=== PATIENT | male | born 1940 | race Caucasian/White ===

== ENCOUNTER 2016-12-05 06:48 | Outpatient (CLI) | payer MEDICARE, OTHER ==
[~2016-12-05] VITALS: Ht 175.3 cm; Wt 109.4 kg
--- NOTE | ~2016-12-05 | CATH ---
Cardiac Diagnostic Report Demographics Patient Name NAREN BILL Gender Male L Date of 1940 Age 76 year(s) Patient Number [id number] Date of Study 12/05/2016 Visit Number [id number] Room Number [id number] [place] ID [id number] Ht 175.26 cm Wt 109.4 kg Referring Meg HILL Primary Physician Physician Performing Efstratiou Secondary Physician Physician Collette Shields MD Diagnostic Efstratiou Assisting Physician Physician Collette Shields MD Interventional Physician Relay Dispatcher Physician Findings and Conclusions Diagnostic Findings and Conclusion All three [place] vessels are 100% occluded. SVGs are patent with one tight anastomotic lesion. Possible culprit for ischemia is SVG to Diag 1 and septal 1. Diagnostic Recommendations Planned PCI to Diag and possible septal 1. Start clopidogrel. Procedure Description The patient was brought to the diagnostic cardiac catheterization-EP laboratory in the fasting, non-sedated state. Informed consent was obtained in the written and verbal form after the risks and benefits were explained. The patient had no further questions and agreed to proceed. The planned puncture-incision site(s) were shaved and prepped with ChloraPrep and draped in the usual sterile manner. Conscious sedation, supplemental oxygen, and pain control medications were delivered by a registered nurse under physician guidance. Surface ECG rhythm, blood pressure measurement, and pulse oximetry were monitored throughout the procedure. Arterial access. The access site was infiltrated with lidocaine. The vessel was entered with the Seldinger technique. A sheath was advanced into the vessel and used for catheter placement. Selective left coronary angiography. A catheter was advanced into the left coronary vessel ostium under Fluoroscopic guidance. Contrast was injected by hand. Images were obtained in multiple projections. Selective right coronary angiography. A catheter was advanced into the right coronary vessel ostium under fluoroscopic guidance. Contrast was injected by hand. Images were obtained in multiple projections. Selective SWANN graft angiography. A catheter was advanced into the left internal mammary graft ostium under fluoroscopic guidance. Contrast was injected by hand. Images were obtained in multiple projections. Selective SVG angiography. A catheter was advanced into the graft proximal anastomosis under fluoroscopic guidance. Contrast was injected by hand. Images were obtained in multiple projections. Arterial artery hemostasis. Hemostasis was achieved. The patient was transferred to a regular nursing floor via cart accompanied by a nurse. The patient left the laboratory in stable condition. Diagnostic Cath Status: Elective Procedure Procedure Type Diagnostic procedure:Angiography:, Coronary Angios w/Grafts Indications: Abnormal Stress Test. The procedure was explained in detail to the patient. Risks, complications and alternative treatments were reviewed. Written consent was obtained. Medications Reviewed with Patient prior to Procedure. Angiographic Findings Dominance: Right Cardiac Arteries and Lesion Findings LMCA: Lesion on LMCA: Distal subsection.80% stenosis . LAD: Lesion on Prox LAD: Proximal subsection.100% stenosis .Chronic total occlusion. Comments:After first septal. Lesion on 1st Septal: Ostial.95% stenosis .Culprit lesion. Comments:Planning possible PCI to this vessel. Lesion on 1st Diag: Proximal subsection.100% stenosis . LCx: Lesion on Prox CX: Proximal subsection.90% stenosis . Lesion on 1st Ob Juliet: Proximal subsection.100% stenosis . Lesion on 2nd Ob Juliet: Mid subsection.20% stenosis .The lesion was diffuse. RCA: Lesion on Prox RCA: Proximal subsection.100% stenosis . Lesion on 1st RPL: Proximal subsection.30% stenosis . Graft Lesions Lesion on Aorta Left to 1st Ob Juliet: Proximal body.40% stenosis . Lesion on Aorta Left to 1st Diag: Proximal anastomosis.90% stenosis . Cardiac Grafts - There is a Vein graft that originates at the Aorta Right and attaches to the R PDA (Patent. PDA small and diffusely diseased. PLB 30% stenosis (fills retrogradely).). - There is a Vein graft that originates at the Aorta Left and attaches to the 2nd Diag (Patent.). - There is a Vein graft that originates at the Aorta Left and attaches to the 1st Diag (90% anastomotic lesion. [place] vessel small.). - There is a graft that originates at the Aorta Left and attaches to the 1st Ob Juliet (40% proximal stenosis. [place] vessel small, patent. ). - There is a Vein graft that originates at the Aorta Left and attaches to the 2nd Ob Juliet (Patent. [place] vessel 20% diffuse disease.). - There is a SWANN graft that originates at the SWANN and attaches to the Dist LAD (Small, patent, excellent flow. [place] vessel small.). Coronary Tree Procedure Data Procedure Date Date: 12/05/2016Start: 09:04 AMEnd: 10:02 AM Entry Locations - Retrograde Percutaneous access was performed through the Right Femoral artery (Primary location). A 6 Fr sheath was inserted. Hemostasis was successfully obtained using Angio-Seal STS PLUS ([place]). Closure Comments: Dr. Ara acosta. Procedure Medications Order and Administration + + +-------+-------+ !Time !Medication !Dosage !Route ! + + +-------+-------+ !12/05/2016 09:56 AM !Plavix (ACC_8) !600 mg !P.O. ! + + +-------+-------+ Devices Used - A6 Fr. BS JL 3.5 Diag. Catheterwas used for:Left coronary angiography. - A6 Fr. BS JR 4 Diag. Catheterwas used for:Right coronary angiography. - A6 Fr. BS IMT Diag. Catheterwas used for:SWANN. - A6 Fr. BS LCB Diag. Catheterwas used for:SVG. - A6 Fr. BS JR 5 Diag. Catheterwas used for:SVG. - A6 Fr. JJ 3DRC Diag. Catheterwas used for:SVG. Contrast Material - Isovue 167905 ml Fluoroscopy Time: Diagnostic: 17:00 minutes. Total: 17:00 minutes. Fluoroscopy Dose: Diagnostic: 2816 mGy. Total: 2816 mGy. Estimated Blood Loss: 25 ml. Medical History Performed Procedures and Imaging Results - Stress testing with SPECT MPIwas performed on 11/22/2016. Results were: Positive. Risk/Extent of ischemia was: Low risk. Allergies - No known allergies. 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 Admission Data Admission Date: 12/05/2016 Admission Time: 06:48 AM Admit Source: Other Insurance Payors: Medicare. Admission Medications + +------+------+ + + + + !Medication !Dosage!Times !Last !Last !Administered !Comments ! ! ! !Per !Delivery !Delivery ! ! ! ! ! !Day !Date !Time ! ! ! + +------+------+ + + + + !Aspirin ! ! ! ! !Yes ! ! !(any) ! ! ! ! ! ! ! + +------+------+ + + + + !Statin (any)! ! ! ! !Yes ! ! + +------+------+ + + + + !LAYLA ! ! ! ! !Yes ! ! !Inhibitor ! ! ! ! ! ! ! !(any) ! ! ! ! ! ! ! + +------+------+ + + + + !Beta Vern! ! ! ! !Yes ! ! !(any) ! ! ! ! ! ! ! + +------+------+ + + + + Clinical Evaluation Leading to Procedure - There were no CAD presentation symptoms. - There were no anginal symptoms. Anti-anginal medications were prescribed during the past two weeks. The medication is: Beta Blockers. Snapshots Hemodynamics Condition: Rest O2 Consumption: Estimated: 268.67Heart Rate: 84 bpm Pressures (mmHg) + + + !Site !Pressure ! + + + !AO !143/66 (95) ! + + + !L [place] !140/62 (92) ! + + + Shunts Oxygen Values O2 Capacity 209.44 O2 Consumption 268.67 Discharge Data Discharge Date: 12/05/2016 Hospital Status: Outpatient Signatures dtt: Nehemias Bullock dtd: 12/05/16 0904 Physician Self Edit
[~2016-12-05 06:48] MED LIST: ALLEGRA180 MG PO; AMOXICILLIN500 MG PO; ASPIRIN EC81 MG PO; CALCIUM 600 +1 EAC6 PO; DEPO-TESTO200 MG/1 M IM; GABAPENTIN300 MG PO; GLUCOSAMINE-CH1 EA26 PO; LEVOTHROID (SY88 MCG PO; LIPITOR80 MG PO; LISINOPRIL-HCT1 EAC1 PO; MIRALAX17 GM PO; MUCUS RELIEF C400 MG PO; NEURONTIN300 MG PO; PRILOSEC20 MG PO; TOPROL XL 5050 MG PO; TYLENOL EXTRA500 MG PO; XALATAN2.5 ML OPHTH; XARELTO20 MG PO
[2016-12-05 07:24] LABS: BASOPHIL # 0.1 K/uL (0.0-0.2); BASOPHIL % 0.9 %; EOSINOPHIL # 0.3 K/uL (0.0-0.5); EOSINOPHIL % 3.5 %; HEMATOCRIT 47.7 % (37.0-53.0); HEMOGLOBIN 15.4 g/dL (11.0-16.0); IMMATURE GRANULOCYTE % 0.3 %; LYMPHOCYTE # 1.9 K/uL (0.8-4.0); LYMPHOCYTE % 22.3 %; MCH 28.2 pg (27.0-34.0); MCHC 32.3 gm/dL (32.0-36.5); MCV 87.4 fl (83.0-98.0); MONOCYTE # 0.8 K/uL (0.0-1.0); MONOCYTE % 9.6 %; MPV 9.5 fl (9.4-12.4); NEUTROPHIL # (ANC) 5.5 K/uL (1.4-9.0); NEUTROPHIL % 63.4 %; NRBC % 0 /100WBC (0-0.00); PLATELET COUNT 194 K/uL (150-450); RDW-CV 13.7 % (11.9-14.6); WBC 8.7 K/uL (4.0-11.0)
[2016-12-05 07:28] LABS: RBC 5.46 M/uL (3.50-5.50)
[2016-12-05 07:31] LABS: PROTIME 10.3 SECONDS (9.6-11.1); PTT 30 SECONDS (25-32)
[2016-12-05 07:37] LABS: ALBUMIN 3.4 gm/dL (3.5-5.0); ANION GAP 13.4 (10.0-19.0); CALCIUM 8.9 mg/dL (8.5-10.5); CREATININE 1.2 mg/dL (0.6-1.3); POTASSIUM 4.4 mMol/L (3.7-5.1); TOTAL BILIRUBIN 0.3 mg/dL (0.0-1.5); TOTAL PROTEIN 7.7 g/dL (6.0-8.4)
[2016-12-05] MEDS ORDERED: PLAVIX75 MG PO (10:45)
[2016-12-05] MEDS ORDERED: ZETIA10 MG PO (10:45)
== END 2016-12-05 13:10 | disposition disaster alternative care site (69) ==
LOC: GCAT 06:48 → GPCU 06:48 → GPOC 07:00 → GCAT 13:10
PROVIDERS: Internal Medicine Cardiovascular Disease
DX: I25.10 Atherosclerotic heart disease of native coronary artery without angina pectoris (principal); I25.810 Atherosclerosis of coronary artery bypass graft(s) without angina pectoris; I25.82 Chronic total occlusion of coronary artery; E78.5 Hyperlipidemia, unspecified; I48.0 Paroxysmal atrial fibrillation; I47.2 Ventricular tachycardia; E66.9 Obesity, unspecified; G47.33 Obstructive sleep apnea (adult) (pediatric); E03.9 Hypothyroidism, unspecified; I12.9 Hypertensive chronic kidney disease with stage 1 through stage 4 chronic kidney disease, or unspecified chronic kidney disease; G62.9 Polyneuropathy, unspecified; N18.3 Chronic kidney disease, stage 3 (moderate); I25.2 Old myocardial infarction; Z79.82 Long term (current) use of aspirin; Z79.01 Long term (current) use of anticoagulants; Z79.899 Other long term (current) drug therapy; Z87.891 Personal history of nicotine dependence; Z95.0 Presence of cardiac pacemaker; Z82.49 Family history of ischemic heart disease and other diseases of the circulatory system
CPT/HCPCS: C1760; C1894; J1644; J2001; J3010; J7030

== ENCOUNTER 2016-12-16 06:56 | Outpatient (CLI) | payer MEDICARE, OTHER ==
[~2016-12-16] VITALS: Ht 172.7 cm; Wt 107.3 kg
--- NOTE | ~2016-12-16 | CATH ---
Cardiac Interventional Report Demographics Patient Name NAREN BILL Gender Male L Date of 1940 Age 76 year(s) Patient Number [id number] Date of Study 12/16/2016 Visit Number [id number] Room Number G6340 [employer] ID [id number] Ht 172.7 cm Wt 107.3 kg Referring Meg HILL Primary Physician Physician Performing Efstratiou Secondary Physician Physician Collette Shields MD Diagnostic Efstratiou Assisting Physician Physician Collette Shields MD Interventional Efstratiou Physician [place] Physician Collette Shields MD Findings and Conclusions Interventional Findings and Conclusion 95% septal reduced to 80% after PTCA- Due to calcium and tortuosity unable to stent Interventional Recommendations ASA and Plavix for 3 months Procedure Description The patient was brought to the diagnostic cardiac catheterization-EP laboratory in the fasting, non-sedated state. Informed consent was obtained in the written and verbal form after the risks and benefits were explained. The patient had no further questions and agreed to proceed. The planned puncture-incision site(s) were shaved and prepped with Chloroprep and draped in the usual sterile manner. Conscious sedation and pain control medications were delivered by a registered nurse under physician guidance. Surface ECG rhythm, blood pressure measurement, and pulse oximetry were monitored throughout the procedure. Angioplasty: A guiding catheter was used to intubate the vessel. A 0.14 wire was used to cross the lesion. A balloon was positioned across the lesion and inflated. Post placement angiograms were performed. Interventional Cath Status: Elective Procedure Procedure Type PCI procedure:PTCA:, Septal Indications: Chest pain. The procedure was explained in detail to the patient. Risks, complications and alternative treatments were reviewed. Written consent was obtained. Medications Reviewed with Patient prior to Procedure. Angiographic Findings Dominance: Right Cardiac Arteries and Lesion Findings LAD: Lesion on 1st Septal: Ostial.95% stenosis 12 mm length reduced to 80%. Pre procedure ELISSA III flow was noted. Post Procedure ELISSA III flow was present. The guidewire cross was successful.A poor run off was present.The lesion was diagnosed as a moderate risk lesion.Culprit lesion. Devices used - Whisper Wire .014 x 190. Number of passes: 2. - Emerge Balloon 1.5 x 12. 2 inflation(s) to a max pressure of: 14 bud. - Emerge Balloon 2.0 x 12. 2 inflation(s) to a max pressure of: 14 bud. - NC Emerge Balloon 2.25 x 12. 2 inflation(s) - Whisper Extra Support Wire .014 x 190. Number of passes: 1. - Emerge Balloon 2.0 x 12. 2 inflation(s) - Emerge Push Balloon 1.2 x 8. 5 inflation(s) to a max pressure of: 14 bud. - Emerge Balloon 1.5 x 8. 1 inflation(s) to a max pressure of: 14 bud. - Emerge Push Balloon 1.2 x 12. 1 inflation(s) to a max pressure of: 16 bud. Cardiac Grafts - There is a Vein graft that originates at the Aorta Right and attaches to the R PDA. - There is a Vein graft that originates at the Aorta Left and attaches to the 2nd Diag. - There is a Vein graft that originates at the Aorta Left and attaches to the 1st Diag. - There is a graft that originates at the Aorta Left and attaches to the 1st Ob Juliet. - There is a Vein graft that originates at the Aorta Left and attaches to the 2nd Ob Juliet. - There is a SWANN graft that originates at the SWANN and attaches to the Dist LAD. Coronary Tree Procedure Data Procedure Date Date: 12/16/2016Start: 09:18 AMEnd: 10:20 AM Entry Locations - Retrograde Percutaneous access was performed through the Right Radial artery (Primary location). A 6 Fr sheath was inserted. Hemostasis was successfully obtained using Mechanical Compression. Closure Comments: 14 cc air in r band by jaime. Procedure Medications Order and Administration + + +--------+ + !Time !Medication !Dosage !Route ! + + +--------+ + !12/16/2016 !Fentanyl !50 mcg !I.V. ! !09:18 AM ! ! ! ! + + +--------+ 12/16/2016 !PAE Radial Cocktail: Heparin 5000 units,! !I.A. ! !09:20 AM !Nitroglycerin 200mcg, Verapamil 3 mg ! ! ! ! !(ACC_3) ! ! ! + + +--------+ 12/16/2016 !Heparin (ACC_3) !1999 !I.V. bolus! !09:22 AM ! !units ! ! + + +--------+ 12/16/2016 !Heparin (ACC_3) !3000 !I.V. bolus! !09:30 AM ! !units ! ! + + +--------+ 12/16/2016 !Heparin (ACC_3) !1999 !I.V. bolus! !10:02 AM ! !units ! ! + + +--------+ + Devices Used - A6 Fr. XBLAD 3.5 Guide Catheterwas used for:Septal Intervention. - A6 Fr. EBU 3.75 Guide Catheterwas used for:Septal Intervention. Contrast Material - Isovue 11504 ml Fluoroscopy Time: Diagnostic: 16:42 minutes. Total: 16:42 minutes. Fluoroscopy Dose: Diagnostic: 1507 mGy. Total: 1507 mGy. Estimated Blood Loss: 25 ml. Additional [facility] PCI Information PCI Indication:Staged PCI. Medical History Allergies - No known allergies. Risk Factors The patient risk factors include: prior CABG on 08/04/2013;obesity, physical activity, hypercholesterolemia, hypertension, family history of premature CAD, last creatinine: 1.3 mg/dl, creatinine clearance: 72.22 ml/min, dyslipidemia and former tobacco use. Admission Data Admission Date: 12/16/2016 Admission Time: 06:56 AM Admit Source: Other Insurance Payors: Medicare. Admission Medications + +------+------+ + + + + !Medication !Dosage!Times !Last !Last !Administered !Comments ! ! ! !Per !Delivery !Delivery ! ! ! ! ! !Day !Date !Time ! ! ! + +------+------+ + + + + !LAYLA ! ! ! ! ! ! ! !Inhibitor ! ! ! ! ! ! ! !(any) ! ! ! ! ! ! ! + +------+------+ + + + + !Aspirin ! ! ! ! ! ! ! !(any) ! ! ! ! ! ! ! + +------+------+ + + + + !Beta Vern! ! ! ! ! ! ! !(any) ! ! ! ! ! ! ! + +------+------+ + + + + !Statin (any)! ! ! ! ! ! ! + +------+------+ + + + + !Clopidogrel ! ! ! ! ! ! ! + +------+------+ + + + + Snapshots Hemodynamics Condition: Rest O2 Consumption: Estimated: 242.84Heart Rate: 60 bpm Pressures (mmHg) +-----+ + !Site !Pressure ! +-----+ + !AO !96/52 (70) ! +-----+ + !AO !104/52 (72) ! +-----+ + Shunts Oxygen Values O2 Capacity 204 O2 Consumption 242.84 Signatures dtt: Nehemias Bullock dtd: 12/16/16 0918 Physician Self Edit
[~2016-12-16 06:56] MED LIST changes: +PLAVIX75 MG PO; +ZETIA10 MG PO
[2016-12-16 07:41] LABS: BASOPHIL # 0.1 K/uL (0.0-0.2); EOSINOPHIL # 0.3 K/uL (0.0-0.5); EOSINOPHIL % 3.1 %; HEMATOCRIT 45.1 % (37.0-53.0); IMMATURE GRANULOCYTE % 0.4 %; LYMPHOCYTE # 1.7 K/uL (0.8-4.0); LYMPHOCYTE % 17.2 %; MCH 28.7 pg (27.0-34.0); MCHC 33.3 gm/dL (32.0-36.5); MCV 86.4 fl (83.0-98.0); MONOCYTE % 10.2 %; MPV 9.7 fl (9.4-12.4); NEUTROPHIL # (ANC) 6.7 K/uL (1.4-9.0); NEUTROPHIL % 68.1 %; NRBC % 0 /100WBC (0-0.00); PLATELET COUNT 210 K/uL (150-450); RBC 5.22 M/uL (3.50-5.50); RDW-CV 13.8 % (11.9-14.6); WBC 9.8 K/uL (4.0-11.0)
[2016-12-16 07:54] LABS: PROTIME 10.4 SECONDS (9.6-11.1); PTT 29 SECONDS (25-32)
[2016-12-16 08:00] LABS: ALBUMIN 3.5 gm/dL (3.5-5.0); ANION GAP 13.1 (10.0-19.0); CALCIUM 8.7 mg/dL (8.5-10.5); CREATININE 1.3 mg/dL (0.6-1.3); POTASSIUM 4.1 mMol/L (3.7-5.1); TOTAL PROTEIN 7.6 g/dL (6.0-8.4)
[2016-12-16 08:18] LABS: TOTAL BILIRUBIN 0.5 mg/dL (0.0-1.5)
[2016-12-16 15:38] LABS: CPK 93 IU/L (35-332)
--- NOTE | 2016-12-16 19:15 | NUR ---
Significant Event: Alert and oriented X 3. Room air. SBP 110's, 120's and 140's. HR 60's. Patient has pacemaker. Cath through right radial with radial compression band. Air released at 2 ml/15 min. Band removed at 1515. +2 radial pulse and good sensation in right hand. No bleeding. Gauze and coban applied. Up with standby assist to restroom. Pleasant and cooperative with cares. at bedside. Follow up:
[2016-12-17 03:59] LABS: ALBUMIN 3.4 gm/dL (3.5-5.0); ALK PHOS 97 IU/L (33-138); ALT 34 IU/L (12-78); BLOOD UREA NITROGEN 27 mg/dL (6-24); CALCIUM 9.1 mg/dL (8.5-10.5); CHLORIDE 106 mMol/L (96-110); CO2 27 mMol/L (22-32); CREATININE 1.1 mg/dL (0.6-1.3); ESTIMATED GFR (MDRD EQUATION) > 60; SODIUM 142 mMol/L (135-145); TOTAL BILIRUBIN 0.5 mg/dL (0.0-1.5); TOTAL PROTEIN 7.8 g/dL (6.0-8.4)
[2016-12-17 04:01] LABS: ANION GAP 13.4 (10.0-19.0); AST 31 IU/L (10-40); POTASSIUM 4.4 mMol/L (3.7-5.1)
--- NOTE | 2016-12-17 05:21 | NUR ---
Signficant events: Pt A/Ox3. VSS. No complaints of pain. Up SBA. On RA. R) radial site coban, no oozing/hematoma. Up SBA. Home today.
== END 2016-12-17 12:45 | disposition disaster alternative care site (69) ==
LOC: GPCU 06:56 → GCAT 06:56 → GOPP 07:00 → GPCU 12:58 → GCAT 12-17 12:45
PROVIDERS: Internal Medicine Cardiovascular Disease
PROC: 02703ZZ Dilation of Coronary Artery, One Artery, Percutaneous Approach (ICD-10-PCS; principal; 2016-12-16)
DX: I25.10 Atherosclerotic heart disease of native coronary artery without angina pectoris (principal); I48.0 Paroxysmal atrial fibrillation; G47.33 Obstructive sleep apnea (adult) (pediatric); I10 Essential (primary) hypertension; E66.9 Obesity, unspecified; G62.9 Polyneuropathy, unspecified; E03.9 Hypothyroidism, unspecified; I47.2 Ventricular tachycardia; E78.00 Pure hypercholesterolemia, unspecified; Z87.891 Personal history of nicotine dependence; Z95.1 Presence of aortocoronary bypass graft; Z82.49 Family history of ischemic heart disease and other diseases of the circulatory system; Z95.0 Presence of cardiac pacemaker; Z79.82 Long term (current) use of aspirin; Z79.01 Long term (current) use of anticoagulants; Z79.899 Other long term (current) drug therapy; Z79.02 Long term (current) use of antithrombotics/antiplatelets
CPT/HCPCS: C1725; C1769; C1887; C1894; J1644; J2001; J2250; J3010; J7030